=== PATIENT | female | born 1980 | race African-American/Black ===

== ENCOUNTER 2017-06-25 06:22 | Emergency (ER) | payer MEDICAID ==
[~2017-06-25] VITALS: Ht 175.3 cm; Wt 113.6 kg
[2017-06-25] MEDS ORDERED: IBUPROFEN 600MG TABLET PO ONE (08:15)
[2017-06-25] MEDS ORDERED: CEFTRIAXONE SODIUM 1 G/VIAL IM ONE (08:45)
[2017-06-25] MEDS ORDERED: LIDOCAINE HCL 1% 20ML VIAL (Pyxis) INJ MC ONE (08:45)
[2017-06-25 09:03] VITALS: BP 145/89
== END 2017-06-25 09:40 | disposition home or self-care (01) ==
LOC: ER 06:22
DX: L08.9 Local infection of the skin and subcutaneous tissue, unspecified (principal); R05 Cough; I10 Essential (primary) hypertension; F17.200 Nicotine dependence, unspecified, uncomplicated
CPT/HCPCS: 71010; 96372; 99283; J0696; J3490